=== PATIENT | female | born 1955 | race Caucasian/White ===

== ENCOUNTER → 2021-04-01 17:18 | Outpatient (CLI) | payer MEDICARE, SELFPAY ==
[2021-04-01 17:38] LABS: Basophils % 0.5 % (0.1-2.0); Eosinophils # 0.1 K/mm3 (0.0-0.4); Eosinophils % 1.3 % (0.1-12.0); Hematocrit 34.7 % (37.0-47.0); Hemoglobin 11.7 g/dL (12.2-16.2); Lymphocytes # 2.2 K/mm3 (0.7-4.5); Lymphocytes % 37.9 % (10-50); Mean Corpuscular HGB Conc 33.8 g/dL (31.8-35.4); Mean Corpuscular Hemoglobin 31.9 pg (27.0-31.2); Mean Corpuscular Volume 94.5 fl (81-99); Mean Platelet Volume 9.2 fl (7.4-10.4); Monocytes # 0.3 K/mm3 (0.1-1.0); Monocytes % 5.5 % (1.7-9.3); Neutrophils # 3.2 K/mm3 (1.8-7.8); Neutrophils % 54.8 % (37.0-80.0); Platelet Count 241 K/mm3 (142-424); Red Blood Count 3.68 M/mm3 (4.20-5.40); Red Cell Distribution Width 12.8 % (11.5-17.5); White Blood Count 5.9 K/mm3 (4.8-10.8)
[2021-04-01 17:56] LABS: Chloride 101 mmol/L (98-107); Potassium 4.6 mmoL/L (3.5-5.1); Sodium 139 mmol/L (136-145)
[2021-04-01 18:00] LABS: Calcium 9.2 mg/dl (8.4-10.2); Glucose 76 mg/dl (74-100); HDL Cholesterol 45 mg/dl (40-60)
[2021-04-01 18:11] LABS: Direct LDL Cholesterol 157.42 mg/dL (100-129)
[2021-04-01 18:22] LABS: Alanine Aminotransferase 20 U/L (12-78); Albumin Level 4.7 g/dl (3.5-5.0); Albumin/Globulin Ratio 1.8 (1.1-1.8); Alkaline Phosphatase 68 U/L (38-126); Anion Gap 14.6 mEq/L (5-15); Aspartate Amino Transferase 29 U/L (14-36); Bilirubin,Total 0.5 mg/dl (0.2-1.3); Blood Urea Nitrogen 14 mg/dl (7-17); Carbon Dioxide 28 mmol/L (22.0-30.0); Chol/HDL Ratio 6.4 (1-3.5); Cholesterol 286 mg/dl (140-200); Estimated Glomerular Filt Rate 72 ml/min (>60); GFR (African American) 87 ML/MIN (>60); Globulin 2.6 g/dL (1.3-3.2); Total Protein,Serum 7.3 g/dl (6.3-8.2); Triglycerides 359 mg/dl (30-150); VLDL Cholesterol 72 mg/dL (0-40)
[2021-04-01 19:14] LABS: Vitamin B12 267 pg/mL (239-931)
== END ==
PROVIDERS: Visit Provider Nurse Practitioner Family
DX: Z00.00 Encounter for general adult medical examination without abnormal findings (principal); I10 Essential (primary) hypertension; E53.8 Deficiency of other specified B group vitamins
CPT/HCPCS: 80053; 80061; 82607; 85025

== ENCOUNTER → 2021-05-26 18:48 | Outpatient (CLI) | payer MEDICARE, SELFPAY | LOC: LAB 18:49 → LAB.DROPOF 19:24 | PROVIDERS: Visit Provider Internal Medicine Adolescent Medicine | DX: R35.0 Frequency of micturition (principal) | CPT/HCPCS: 87086 ==

== ENCOUNTER 2022-08-09 21:05 | Observation (INO) | payer MEDICARE, OTHER, SELFPAY ==
[2022-08-09 20:24] VITALS: BP 165/74; PULSE 99; O2SAT 96
--- NOTE | 2022-08-09 20:26 | ECG_ITS ---
APPROVED REPORT Exam: Resting ECG HR:89 bpm ECG Measurements Heart Rate 89 AXES [place] 167 P 8 QRSd 134 QRS -13 QT 403 T 84 QTc 450 Conclusion SINUS RHYTHM WITH OCCASIONAL SUPRAVENTRICULAR PREMATURE COMPLEXES LEFT BUNDLE BRANCH BLOCK [120+ ms QRS DURATION, 80+ ms Q/S IN V1/V2, 85+ ms R IN I/aVL/V5/V6] ABNORMAL ECG UNCONFIRMED REPORT Electronically signed by : Reno Flores MD 08/10/2022 21:06:55
[2022-08-09 20:33] VITALS: BP 165/74; PULSE 87; RESP 16; TEMP 36.6; O2SAT 97; BMI 24.7
[2022-08-09 20:55] LABS: Coronavirus 19, PCR Not Detected (NotDetected); Influenza A, PCR Not Detected (NotDetected); Influenza B, PCR Not Detected (NotDetected)
--- NOTE | 2022-08-09 20:56 | HMH.EDGENADL ---
Discharge Plan Disposition Patient Disposition: Admitted As Inpatient Condition: Good Clinical Impressions Clinical Impression: Psychosis Discharge ED Provider: Tala Navarrete General Adult HPI General Chief complaint: Psychiatric Symptoms Stated complaint: psych Time Seen by Provider: 08/09/22 20:56 Mode of Arrival: EMS Limitations: No Limitations Description of Symptoms (Recalled from ER Triage Doc. by RN): pt states that she is off her medications and having visions pt has a psych hx unclear on the actual story History of Present Illness HPI narrative: This patient is a 67-year-old female with extensive psychiatric history presenting to the emergency department requesting a psychiatric evaluation. She states that she has been worried about her daughter who is on drugs and is not coming home, and she feels like she is going crazy again. She states that she takes her anxiety medicine at home as prescribed, but she still gets anxious and pictures people being murdered. She denies any suicidal ideations, homicidal ideations, or other concerns. She is alert and oriented x4 and has no other complaints, such as recent fevers, chills, chest pain, shortness of breath, abdominal pain, vomiting, changes in bowel movements, dysuria, rashes, or swelling. She is otherwise able to care for self without difficulty. She cannot recall what medications that she is supposed to be on. She does have 2 bottles with her, one being Remeron and the other being lisinopril. Related Data Allergies Allergy/AdvReac Type Severity Reaction Status Date / Time aspirin Allergy Verified 08/09/22 23:48 [facility] Medical History (Updated 08/10/22 @ 02:16 by Tala Navarrete DO) Bipolar disorder Cervical arthritis HTN (hypertension) Paranoid schizophrenia Social History (Updated 08/10/22 @ 00:34 by Sp Garcia DNP) Smoking Status: Unknown if ever smoked alcohol intake: never current occupational status: unemployed Travel in the last 8 weeks: None ROS Obtained: Yes All systems reviewed & no additional complaints except as documented 14 point review of systems obtained and negative except otherwise mentioned in HPI. Physical Exam General General appearance: alert and in no apparent distress Head Head exam: atraumatic and normocephalic Eye Eye exam: Present normal appearance, PERRL and EOMI ENT ENT exam: Present normal exam Neck Neck exam: Present normal inspection and full ROM Chest Chest inspection: Present normal inspection and symmetric chest wall rise Respiratory Respiratory exam: Present normal lung sounds bilaterally; Absent respiratory distress or wheezes Cardiovascular Cardiovascular exam: Present regular rate and normal rhythm Abdominal Exam Abdominal exam: Present soft; Absent distention, tenderness or guarding Extremities Exam Extremities exam: Present normal inspection Back Exam Back exam: Present normal inspection Neurological Exam Neurological exam: Present alert, oriented X3 and CN II-XII intact; Absent motor sensory deficit Psychiatric Psychiatric exam: Present normal affect and normal mood; Absent homicidal ideation or suicidal ideation Skin Skin exam: Present warm, dry and intact Medical Decision Making Medical Records Medical records reviewed: Yes I reviewed the patient's medical records. [place] Inquiry Pt receiving controlled substance: No Vital Signs: 08/09/22 20:33 08/09/22 20:24 08/09/22 21:00 Temperature 98 F Temperature Source Oral Pulse Rate 99 H 96 H Pulse Rate [Left] 87 Respiratory Rate 16 Blood Pressure 165/74 H 148/86 H Blood Pressure [Right Arm] 165/74 H Blood Pressure Mean [Right Arm] 104 Blood Pressure Source [Right Arm] 02 Sat by Pulse Oximetry 97 96 97 Oxygen Delivery Method Room Air Room Air Room Air 08/10/22 01:51 08/10/22 02:09 08/10/22 02:09 Temperature 99.4 F 98.6 F Temperature Source Oral Pulse Rate 97 H Pulse Rate [Left] 60 Respir
[2022-08-09 21:00] VITALS: BP 148/86; PULSE 96; O2SAT 97
[2022-08-09 21:09] LABS: Microscopic, Urine URINE MICROSCOPIC (MICROSCOPIC)
[2022-08-09 21:18] LABS: Alanine Aminotransferase 22 U/L (12-78); Albumin Level 4.6 g/dl (3.5-5.0); Albumin/Globulin Ratio 1.4 (1.1-1.8); Alkaline Phosphatase 113 U/L (38-126); Anion Gap 15.6 mEq/L (5-15); Aspartate Amino Transferase 38 U/L (14-36); Bilirubin,Total 0.5 mg/dl (0.2-1.3); Blood Urea Nitrogen 18 mg/dl (7-17); Calcium 9.1 mg/dl (8.4-10.2); Carbon Dioxide 30 mmol/L (22.0-30.0); Chloride 99 mmol/L (98-107); Creatinine Clearance Estimated 54 mL/min (50-200); Estimated Glomerular Filt Rate 62 ml/min (>60); GFR (African American) 75 ML/MIN (>60); Globulin 3.3 g/dL (1.3-3.2); Glucose 118 mg/dl (74-100); Potassium 3.6 mmoL/L (3.5-5.1); Sodium 141 mmol/L (136-145); Total Protein,Serum 7.9 g/dl (6.3-8.2)
[2022-08-09 21:19] LABS: Appearance,Urine CLEAR (Clear); Bilirubin,Urine Negative (Negative); Blood, Urine TRACE-I (Negative); Color,Urine YELLOW (Yellow); Glucose,Urine (UA) Negative (Negative); Ketones,Urine TRACE (Negative); Leukocyte Esterase,Urine TRACE (Negative); Nitrate,Urine Negative (Negative); Protein,Urine Negative (Negative); Urobilinogen,Urine 0.2 EU/dl (0.2)
[2022-08-09 21:23] LABS: Basophils # 0.1 K/mm3 (0-0.2); Basophils % 1.1 % (0.1-2.0); Eosinophils % 0.2 % (0.1-12.0); Hematocrit 41.7 % (37.0-47.0); Hemoglobin 13.6 g/dL (12.2-16.2); Lymphocytes # 1.7 K/mm3 (0.7-4.5); Lymphocytes % 18.6 % (10-50); Mean Corpuscular HGB Conc 32.7 g/dL (31.8-35.4); Mean Corpuscular Hemoglobin 30.7 pg (27.0-31.2); Mean Corpuscular Volume 93.8 fl (81-99); Mean Platelet Volume 8.5 fl (7.4-10.4); Monocytes # 0.6 K/mm3 (0.1-1.0); Monocytes % 6.5 % (1.7-9.3); Neutrophils # 6.9 K/mm3 (1.8-7.8); Neutrophils % 73.6 % (37.0-80.0); Platelet Count 312 K/mm3 (142-424); Red Blood Count 4.44 M/mm3 (4.20-5.40); Red Cell Distribution Width 12.1 % (11.5-17.5); White Blood Count 9.4 K/mm3 (4.8-10.8)
[2022-08-09 21:29] LABS: Troponin I 0.03 ng/ml (0.00-0.034)
[2022-08-09 21:30] LABS: Bacteria,Urine Trace /lpf; Squamous Epithelial Cell,Urine Occasional #/hpf (0-5)
[2022-08-09 21:31] LABS: Benzodiazepines Screen,Urine Negative ng/ml (<200)
[2022-08-09 21:32] LABS: Amphetamine/Metha Screen,Urine Negative ng/ml (<1000); Ethyl Alcohol < 10 mg/dl (0-10)
[2022-08-09 21:33] LABS: Barbiturates Screen,Urine Negative ng/ml (<200); Opiate Screen,Urine Negative ng/ml (<300)
[2022-08-09 21:34] LABS: Phencyclidine Screen,Urine Negative ng/ml (<25)
[2022-08-09 21:35] LABS: Cannabinoid Screen,Urine Negative ng/ml (<50)
[2022-08-09 21:36] LABS: Cocaine Screen,Urine Negative ng/ml (<300); Methadone Screen,Urine Negative ng/ml (<300)
[2022-08-09 21:47] LABS: Ammonia < 9 umol/L (9-30)
[2022-08-09 21:54] LABS: VBG Base Excess -3.1 mmol/L (-2.4-2.3); VBG HCO3 21.5 mmol/L (23-30); VBG Oxygen Saturation 86.5 % (50-70); VBG PCO2 34.6 mmol/L (35-51); VBG PH 7.41 mmol/L (7.31-7.41); VBG PO2 49.7 mmol/L (28-40); VBG Total CO2 22.6 mmol/L (23-27)
[2022-08-09 23:58] VITALS: BMI 26.4
--- NOTE | 2022-08-10 00:16 | EXP.HP ---
History of Present Illness *Admission Date: 08/10/22 *Reason for visit:: Paranoia *History of present illness: Ms. Woodruff is a 67-year-old female with a past medical history per charts reviewed of Paranoid Schizophrenia with multiple hospitalizations, Bipolar Disorder, Anxiety Disorder and HTN. She presented to [facility] by EMS due to extreme anxiety and disorganized thoughts. She was seen in the ER after her admission. Medical work-up included a urinalysis, UDS, Covid, Flu and CBC and CMP that were unremarkable. She was seen pacing in her rooms. Questioning resulted in very disorganized thoughts. She reports feeling very concerned about one of her daughters being on drugs and not knowing where she is currently at, she reports she lives alone. She then goes on to talk about a time when she was hospitalized at [facility] and placed in solitary confinement due to having thoughts like she is currently having, she reports she was concerned she was going crazy again so she came into the ER for evaluation. She is denying any thoughts of harming herself or others. The ER is reporting they cannot get her accepted currently at [facility]. Family has been called and reports that they cannot come to get the patient. They are reporting that there is a barber or beauty shop manager at the facility for consult. The patient will be admitted with initial impression: Paranoid behaviors. The barber or beauty shop manager will be consulted to see the patient for discharge disposition recommendations. [facility] Medical History (Updated 08/10/22 @ 00:28 by Sp Garcia DNP) Bipolar disorder Cervical arthritis HTN (hypertension) Paranoid schizophrenia Social History Smoking Status: Unknown if ever smoked alcohol intake: never current occupational status: unemployed Travel in the last 8 weeks: None Review of Systems Review of Systems Review of systems:: unable to obtain Meds Home Medications and Allergies New Prescriptions to Start Prescriptions: Allergies Allergy/AdvReac Type Severity Reaction Status Date / Time aspirin Allergy Verified 08/09/22 23:48 Exam Data for Last 24 hours Vital signs and Labs for Last 24 Hours: Temp Pulse Resp BP Pulse Ox 98 F 96 H 16 148/86 H 97 08/09/22 20:33 08/09/22 21:00 08/09/22 20:33 08/09/22 21:00 08/09/22 21:00 Laboratory Results - last 24 hr 08/09/22 20:42: VBG pH 7.41, VBG pCO2 34.6 L, VBG pO2 49.7 H, VBG HCO3 21.5 L, VBG Total CO2 22.6 L, VBG O2 Saturation 86.5 H, VBG Base Excess -3.1 L 08/09/22 20:46: SARS-CoV-2 (PCR) Not detected, Influenza A Untype (PCR) Not detected, Influenza Type B (PCR) Not detected 08/09/22 20:55: Urine Color Yellow, Urine Appearance Clear, Urine pH 6.0, Ur Specific [place] 1.010, Urine Protein Negative, Urine Glucose (UA) Negative, Urine Ketones Trace, Urine Blood Trace-i, Urine Nitrate Negative, Urine Bilirubin Negative, Urine Urobilinogen 0.2, Ur Leukocyte Esterase Trace, Urine RBC 3-5, Urine WBC 3-5, Ur Squamous Epith Cells Occasional, Urine Bacteria Trace 08/09/22 20:55: WBC 9.4, RBC 4.44, Hgb 13.6, Hct 41.7, MCV 93.8, MCH 30.7, MCHC 32.7, RDW 12.1, Plt Count 312, MPV 8.5, Neut % (Auto) 73.6, Lymph % (Auto) 18.6, [place] % (Auto) 6.5, Eos % (Auto) 0.2, Baso % (Auto) 1.1, Neut # (Auto) 6.9, Lymph # (Auto) 1.7, [place] # (Auto) 0.6, Eos # (Auto) 0.0, Baso # (Auto) 0.1 08/09/22 20:55: Sodium 141, Potassium 3.6, Chloride 99, Carbon Dioxide 30, Anion Gap 15.6 H, BUN 18 H, Creatinine 0.90, Estimated Creat Clear 54, Estimated GFR 62, Est GFR ( Amer) 75, Glucose 118 H, Calcium 9.1, Total Bilirubin 0.5, AST 38 H, ALT 22, Alkaline Phosphatase 113, Troponin I 0.03, Total Protein 7.9, Albumin 4.6, Globulin 3.3 H, Albumin/Globulin Ratio 1.4 08/09/22 20:55: Urine Opiates Screen Negative, Urine Methadone Screen Negative, Ur Barbituates Screen Negative, Ur Phencyclidine Scrn Negative, Ur Amphetamines Screen Negative
[2022-08-10 01:51] VITALS: BP 124/71; PULSE 60; RESP 16; TEMP 37.4; O2SAT 97
[2022-08-10 02:09] VITALS: BP 148/86; PULSE 97; RESP 18; TEMP 37; O2SAT 100
[2022-08-10 04:00] VITALS: BP 136/76; PULSE 82; RESP 16; TEMP 37.1; O2SAT 97
--- NOTE | 2022-08-10 04:08 | PC.NURSE ---
pt admitted this shift with reported hallucinations. pt appears to be talking to herself at times. ambulates with standby assistance. bed alarm is on for pt safety. CB in reach.
[2022-08-10 04:44] VITALS: BMI 26.6
[2022-08-10 06:46] LABS: Chloride 101 mmol/L (98-107); Potassium 3.7 mmoL/L (3.5-5.1); Sodium 139 mmol/L (136-145)
[2022-08-10 06:49] LABS: Alanine Aminotransferase 15 U/L (12-78); Albumin Level 4.5 g/dl (3.5-5.0); Albumin/Globulin Ratio 1.7 (1.1-1.8); Alkaline Phosphatase 84 U/L (38-126); Anion Gap 16.7 mEq/L (5-15); Aspartate Amino Transferase 35 U/L (14-36); Bilirubin,Total 0.3 mg/dl (0.2-1.3); Blood Urea Nitrogen 20 mg/dl (7-17); Carbon Dioxide 25 mmol/L (22.0-30.0); Creatinine Clearance Estimated 58 mL/min (50-200); Estimated Glomerular Filt Rate 62 ml/min (>60); GFR (African American) 75 ML/MIN (>60); Globulin 2.6 g/dL (1.3-3.2); Total Protein,Serum 7.1 g/dl (6.3-8.2)
[2022-08-10 06:50] LABS: Calcium 8.6 mg/dl (8.4-10.2); Glucose 105 mg/dl (74-100)
[2022-08-10 07:05] LABS: Basophils # 0.1 K/mm3 (0-0.2); Basophils % 0.7 % (0.1-2.0); Eosinophils # 0.1 K/mm3 (0.0-0.4); Eosinophils % 0.7 % (0.1-12.0); Hematocrit 36.8 % (37.0-47.0); Lymphocytes # 2.4 K/mm3 (0.7-4.5); Mean Corpuscular HGB Conc 33.1 g/dL (31.8-35.4); Mean Corpuscular Hemoglobin 30.7 pg (27.0-31.2); Mean Corpuscular Volume 92.8 fl (81-99); Mean Platelet Volume 9.1 fl (7.4-10.4); Monocytes # 0.5 K/mm3 (0.1-1.0); Monocytes % 6.9 % (1.7-9.3); Neutrophils # 4.7 K/mm3 (1.8-7.8); Neutrophils % 60.9 % (37.0-80.0); Platelet Count 313 K/mm3 (142-424); Red Blood Count 3.96 M/mm3 (4.20-5.40); Red Cell Distribution Width 12.2 % (11.5-17.5); White Blood Count 7.7 K/mm3 (4.8-10.8)
[2022-08-10 07:06] LABS: Hemoglobin 12.2 g/dL (12.2-16.2)
--- NOTE | 2022-08-10 07:54 | PC.NURSE ---
spoke with dr valle who stated patient did not have to be one on one. bed alarm set on patient bed. patient within site of nurses station and doors to unit locked
[2022-08-10 08:00] VITALS: BP 128/73; PULSE 88; RESP 14; TEMP 36.6; O2SAT 97
--- NOTE | 2022-08-10 10:41 | SW/DCPLANNER ---
Addendum entered by [facility] 08/10/22 14:53: Patient's daughter stated that she would make contact with patient's niece to transport her home once she gets off work. Addendum entered by [facility] 08/10/22 12:53: J Luis Mesa evaluated this patient and stated that patient does not need inpatient psychiatric care. J Luis Mesa stated that patient can return home with family or personal nursing home. Meliza bowers/Sana Hardin did evaluate this patient today and patient refused placement. Patient stated that she would prefer back home. Patient will discharge home later today and will have outpatient follow up with Behavioral Health. I will call and update patient's daughter. I have updated MD regarding situation. Addendum entered by [facility] 08/10/22 10:52: Reyna bowers/ [facility] ([phone]) has called back and stated that she did not feel this patient would meet criteria for admission and appears to be more appropriate for [facility]. Patient information has been faxed to [facility] at this time. Original Note: I spoke with patient's daughter regarding this patient's situation ([facility] [phone]). Daughter states that patient has been to several Behavioral Health facilities in the past including [facility] and [facility]. I explained to daughter that patient would need transportation to [facility]: she is currently in [place] but will work to contact family members in this area regarding transportation. J Luis Mesa has been consulted on this patient and I will follow up with her suggestions. I also explained to patient and daughter that patient should consider Personal Retirement and did give daughter information on facilities in [place]. I will follow up with patient/daughter/J Luis Mesa.
--- NOTE | 2022-08-10 12:01 | HMH.PHAINT1 ---
Pharmacy Intervention Comments: MEDICATION RECONCILIATION COMPLETED ON PATIENT USING EXTERNAL FILL HISTORY FROM PHARMACY, CALL TO PHARMACY, AND PATIENT'S OWN SUPPLY OF MEDICATIONS. PATIENT ONLY BROUGHT LISINOPRIL AND REMERON TABLETS FROM HOME (FILLED ON 05/29 FOR A 30 DAY SUPPLY). ALL OTHER MEDICATIONS WERE FILLED THAT DAY, BUT PATIENT IS MOST LIKELY OUT OF THOSE MEDICATIONS AT THIS POINT. PATIENT STATED DURING ROUNDS THAT SHE ONLY TAKES MEDICATIONS WHEN SHE FEELS LIKE IT. COMPLIANCE IS AN ISSUE. -DAKSHA CAIN, TRINITYD
--- NOTE | 2022-08-10 13:46 | EXP.DC.SUM ---
General Admission date:: 08/10/22 Discharge date: 08/10/22 HPI HPI HPI: Ms. Woodruff is a 67-year-old female with a past medical history per charts reviewed of Paranoid Schizophrenia with multiple hospitalizations, Bipolar Disorder, Anxiety Disorder and HTN. Previous [facility] Admission noted. She presented to [facility] by EMS due to extreme anxiety and disorganized thoughts. She was seen in the ER after her admission. Medical work-up included a urinalysis, UDS, Covid, Flu and CBC and CMP that were unremarkable. She was seen pacing in her rooms. Questioning resulted in very disorganized thoughts. She reports feeling very concerned about one of her daughters being on drugs and not knowing where she is currently at, she reports she lives alone. She then goes on to talk about a time when she was hospitalized at [facility] and placed in solitary confinement due to having thoughts like she is currently having, she reports she was concerned she was going crazy again so she came into the ER for evaluation. She is denying any thoughts of harming herself or others. The ER is reporting they cannot get her accepted currently at [facility]. Family has been called and reports that they cannot come to get the patient. They are reporting that there is a horticultural specialty grower inside at the facility for consult. The patient will be admitted with initial impression: Paranoid behaviors. The horticultural specialty grower inside will be consulted to see the patient for discharge disposition recommendations. Hospital Course Hospital Course Hospital Course: The patient was admitted to the medical unit with routine nursing interaction and evaluations. Behavioral medicine (Kim Mesa) evaluated the patient and recommended home with family, compliance with medications and follow-up with their service in a few days. Case management assisted with discharge planning and advised on personal jail discharge and the patient declined. She declined similar recommendations at [facility] 3 weeks ago. Her laboratory studies were trended and remained stable. The patient will be discharged home and compliance with medications is encouraged. Exam Data for Last 24 hours Vital signs and Labs for Last 24 Hours: Temp Pulse Resp BP Pulse Ox 97.9 F 88 14 128/73 97 08/10/22 08:00 08/10/22 08:00 08/10/22 08:00 08/10/22 08:00 08/10/22 08:00 Laboratory Results - last 24 hr 08/09/22 20:42: VBG pH 7.41, VBG pCO2 34.6 L, VBG pO2 49.7 H, VBG HCO3 21.5 L, VBG Total CO2 22.6 L, VBG O2 Saturation 86.5 H, VBG Base Excess -3.1 L 08/09/22 20:46: SARS-CoV-2 (PCR) Not detected, Influenza A Untype (PCR) Not detected, Influenza Type B (PCR) Not detected 08/09/22 20:55: Urine Color Yellow, Urine Appearance Clear, Urine pH 6.0, Ur Specific [place] 1.010, Urine Protein Negative, Urine Glucose (UA) Negative, Urine Ketones Trace, Urine Blood Trace-i, Urine Nitrate Negative, Urine Bilirubin Negative, Urine Urobilinogen 0.2, Ur Leukocyte Esterase Trace, Urine RBC 3-5, Urine WBC 3-5, Ur Squamous Epith Cells Occasional, Urine Bacteria Trace 08/09/22 20:55: WBC 9.4, RBC 4.44, Hgb 13.6, Hct 41.7, MCV 93.8, MCH 30.7, MCHC 32.7, RDW 12.1, Plt Count 312, MPV 8.5, Neut % (Auto) 73.6, Lymph % (Auto) 18.6, [place] % (Auto) 6.5, Eos % (Auto) 0.2, Baso % (Auto) 1.1, Neut # (Auto) 6.9, Lymph # (Auto) 1.7, [place] # (Auto) 0.6, Eos # (Auto) 0.0, Baso # (Auto) 0.1 08/09/22 20:55: Sodium 141, Potassium 3.6, Chloride 99, Carbon Dioxide 30, Anion Gap 15.6 H, BUN 18 H, Creatinine 0.90, Estimated Creat Clear 54, Estimated GFR 62, Est GFR ( Amer) 75, Glucose 118 H, Calcium 9.1, Total Bilirubin 0.5, AST 38 H, ALT 22, Alkaline Phosphatase 113, Troponin I 0.03, Total Protein 7.9, Albumin 4.6, Globulin 3.3 H, Albumin/Globulin Ratio 1.4 08/09/22 20:55: Urine Opiates Screen Negative, Urine Methadone Screen Negative, Ur Barbituates Screen Negative, Ur Phencyclidine Scrn Negative, Ur Amphetamines Screen Negati
--- NOTE | 2022-08-10 16:36 | CARE MANAGER ---
Contacted [facility] and they will take patient home. JENNIFER Souza
--- NOTE | 2022-08-10 16:44 | PC.NURSE ---
Advised daughter Mele, pt was being d/cd, she stated she had to have tires placed on car and was on her way to p/u pt. ETA an hr and 40 minutes.
--- NOTE | 2022-08-10 19:46 | PC.NURSE ---
Attempted to call daughter re to pt leaving jacket upon d/c. No ans at this time.
--- NOTE | 2022-08-11 13:56 | CARE MANAGER ---
Attempted post-discharge phone interview, no answer..
--- NOTE | 2022-08-13 10:40 | PC.NURSE ---
[facility] [place] called inquiring as to her discharge dx and what meds she was discharged with.
== END 2022-08-10 18:40 | disposition home or self-care (01) ==
LOC: ER 22:57 → 2ND 08-10 00:06
PROVIDERS: Nurse Practitioner Family; Admitting Provider Family Medicine; Emergency Provider Emergency Medicine; Visit Provider Family Medicine
DX: F20.0 Paranoid schizophrenia (principal); F31.9 Bipolar disorder, unspecified; I10 Essential (primary) hypertension; Z79.899 Other long term (current) drug therapy; Z20.822 Contact with and (suspected) exposure to COVID-19
CPT/HCPCS: G0378; 36415; 80053; 80305; 81001; 82140; 82803; 84484; 85025; 93005; 99285; C9803; U0003; U0005